=== PATIENT | female | born 1990 | race Caucasian/White ===

== ENCOUNTER → 2016-07-13 | Outpatient (REF) | payer OTHER ==
[~2016-07-13] MED LIST: /MOM400 PO; ACET50TA PO; ANUS2.5C2 EXT; ANUS2.5C2 TOP; COLA50CA3 PO; IBUP80TA PO; VITAPRTA PO
[2016-07-13 11:49] LABS: MEAN CORPUSCULAR HEMOGLOBIN 25.4 pg (27.0-33.0); MEAN CORPUSCULAR HGB CONC 32.9 g/dl (32.0-36.5); MEAN CORPUSCULAR VOLUME 77.3 fl (80.0-96.0); RED CELL DISTRIBUTION WIDTH 14.4 % (11.5-14.5); WHITE BLOOD COUNT 5.4 K/mm3 (4.0-10.0)
[2016-07-15 00:06] LABS: Lyme Disease IgG/IgM Antibodie <0.91 ISR (0.00-0.90); Lyme Disease IgM Ab Quantitati <0.80 index (0.00-0.79); SJOGREN'S ANTI SS-A >8.0 AI (0.0-0.9); SJOGREN'S ANTI SS-B 0.3 AI (0.0-0.9)
== END ==
LOC: M SFHCLERA 10:14
PROVIDERS: ATTEND Physician Assistant
DX: M25.50 Pain in unspecified joint (principal)